=== PATIENT | female | born 1950 | race Caucasian/White ===

== ENCOUNTER 2017-10-06 05:35 | Day surgery (SDC) | payer MEDICARE, OTHER ==
[~2017-10-06] VITALS: Ht 165.1 cm; Wt 112.5 kg
[~2017-10-06 05:35] MED LIST: ACET500 PO; AMOCLA875 PO; ANAS1 PO; ASPI81CH PO; ASPI81EC PO; BENEFIBER1 EAC1 PO; CALCA400CH PO; CHOL10002 PO; CRANBERRY CONCENTRAT PO; CRUTCH4 USE; DOCCAL240 PO; FLUT.05NI; Flovent 44 mc10.6 GM INH; GAS X PO; Hair, Skin & N1 EACH PO; IBUP800 PO; METRIBP PO; MIRALAX17 GM PO; PRED20 PO; PROACE100 PO; PROBIOTIC; PROBIOTIC1 EAC1; PROBIOTIC1 EAC2 PO; RANI150 PO; Stool Softener100 MG PO; THERACRAN650 MG PO; TUMS200 MG PO; Tylenol325 MG PO; VITAMIN B12 PO; VITAMINS; [UNRECOGNIZED DRUG - REMARK]
== END 2017-10-06 08:38 | disposition home or self-care (01) ==
LOC: ORSCMMR 05:35
PROVIDERS: Surgery
PROC: 0DJD8ZZ Inspection of Lower Intestinal Tract, Via Natural or Artificial Opening Endoscopic (ICD-10-PCS; principal; 2017-10-06 07:30)
DX: Z12.11 Encounter for screening for malignant neoplasm of colon (principal); K57.30 Diverticulosis of large intestine without perforation or abscess without bleeding; Z87.19 Personal history of other diseases of the digestive system; E11.9 Type 2 diabetes mellitus without complications; E66.01 Morbid (severe) obesity due to excess calories; Z68.41 Body mass index [BMI] 40.0-44.9, adult; Z79.82 Long term (current) use of aspirin; Z79.899 Other long term (current) drug therapy
CPT/HCPCS: 82947; J2250; J7120

== ENCOUNTER 2020-12-03 12:41 | Emergency (ER) | payer MEDICARE, OTHER ==
[~2020-12-03] VITALS: Ht 170.2 cm; Wt 113.4 kg
[2020-12-03 13:17] LABS: BASOPHILS ABSOLUTE AUTO 0.03 K/mm3 (0.00-0.23); BASOPHILS PERCENT AUTO 0 % (0-2); EOSINOPHILS ABSOLUTE AUTO 0.14 K/mm3 (0.00-0.68); EOSINOPHILS PERCENT AUTO 2 % (0-6); Hematocrit 47.5 % (33.0-51.0); Hemoglobin 15.4 g/dL (11.5-16.0); IMMATURE GRAN ABSOLUTE AUTO 0.02 K/mm3 (0.00-0.10); IMMATURE GRAN PERCENT AUTO 0 % (0-1); LYMPHOCYTES ABSOLUTE AUTO 2.22 K/mm3 (0.84-5.20); LYMPHOCYTES PERCENT AUTO 31 % (21-46); MONOCYTES ABSOLUTE AUTO 0.63 K/mm3 (0.16-1.47); MONOCYTES PERCENT AUTO 9 % (4-13); Mean Corpuscular HGB 30.6 pg (26.0-34.0); Mean Corpuscular HGB Conc 32.4 g/dL (31.5-36.5); Mean Corpuscular Volume 94 fL (80-100); Mean Platelet Volume 11.5 fL (9.1-12.4); NEUTROPHILS ABSOLUTE AUTO 4.14 K/mm3 (1.96-9.15); NEUTROPHILS PERCENT AUTO 58 % (41-73); Platelet Count 221 K/mm3 (150-400); RDW Coefficient Variation 13.3 % (11.7-14.2); RDW Standard Deviation 45.7 fL (35.1-46.3); Red Blood Cell Count 5.04 M/mm3 (3.80-5.20); White Blood Cell Count 7.18 K/mm3 (4.00-11.30)
[2020-12-03 13:36] LABS: Alanine Aminotransfer (ALT/SGP 61 U/L (12-78); Albumin, Blood 3.5 g/dL (3.4-5.0); Albumin/Globulin Ratio 0.9 (0.8-1.8); Alk Phos 121 U/L (50-136); Anion Gap 5 mmol/L (6-16); Aspartate Aminotrans (AST/SGOT 33 U/L (12-37); Bilirubin, Total 0.7 mg/dL (0.1-1.0); Blood Urea Nitrogen 12 mg/dL (8-24); Bun/Creatinine Ratio 16.5 (12.0-20.0); CO2, Blood 27 mmol/L (21-32); Calcium, Blood 8.7 mg/dL (8.5-10.1); Chloride, Blood 111 mmol/L (98-108); Creatinine, Blood 0.73 mg/dL (0.40-1.00); Globulin, Blood 3.7 g/dL (2.2-4.0); Glomerular Filtration Rate >60 (60-); Glucose, Blood 146 mg/dL (70-99); Potassium, Blood 3.7 mmol/L (3.5-5.5); Sodium, Blood 143 mmol/L (136-145); Total Protein, Blood 7.2 g/dL (6.4-8.2); Troponin I <0.015 ng/mL (0.000-0.040)
== END 2020-12-03 16:52 | disposition home or self-care (01) ==
LOC: ER 12:41
PROVIDERS: Physician Assistant
DX: I47.1 Supraventricular tachycardia (principal); Z79.52 Long term (current) use of systemic steroids; Z79.899 Other long term (current) drug therapy; Z88.5 Allergy status to narcotic agent
CPT/HCPCS: 36415; 71046; 80053; 84443; 84484; 85025; 85379; 93005; 93010; 96374; 99285-25; J0153

== ENCOUNTER 2020-12-16 04:33 | Observation (INO) | payer MEDICARE, OTHER ==
[~2020-12-16] VITALS: Ht 165.1 cm; Wt 108.9 kg
[2020-12-16 05:13] LABS: BASOPHILS ABSOLUTE AUTO 0.04 K/mm3 (0.00-0.23); BASOPHILS PERCENT AUTO 1 % (0-2); EOSINOPHILS PERCENT AUTO 3 % (0-6); Hematocrit 45.7 % (33.0-51.0); Hemoglobin 14.5 g/dL (11.5-16.0); IMMATURE GRAN ABSOLUTE AUTO 0.02 K/mm3 (0.00-0.10); IMMATURE GRAN PERCENT AUTO 0 % (0-1); LYMPHOCYTES ABSOLUTE AUTO 2.06 K/mm3 (0.84-5.20); LYMPHOCYTES PERCENT AUTO 29 % (21-46); MONOCYTES ABSOLUTE AUTO 0.69 K/mm3 (0.16-1.47); MONOCYTES PERCENT AUTO 10 % (4-13); Mean Corpuscular HGB 29.4 pg (26.0-34.0); Mean Corpuscular HGB Conc 31.7 g/dL (31.5-36.5); Mean Corpuscular Volume 93 fL (80-100); Mean Platelet Volume 11.5 fL (9.1-12.4); NEUTROPHILS PERCENT AUTO 58 % (41-73); Platelet Count 192 K/mm3 (150-400); RDW Coefficient Variation 13.2 % (11.7-14.2); Red Blood Cell Count 4.93 M/mm3 (3.80-5.20); White Blood Cell Count 7.11 K/mm3 (4.00-11.30)
[2020-12-16 05:32] LABS: Alanine Aminotransfer (ALT/SGP 48 U/L (12-78); Albumin, Blood 3.5 g/dL (3.4-5.0); Alk Phos 110 U/L (50-136); Anion Gap 4 mmol/L (6-16); Aspartate Aminotrans (AST/SGOT 26 U/L (12-37); Bilirubin, Total 0.5 mg/dL (0.1-1.0); Blood Urea Nitrogen 14 mg/dL (8-24); Bun/Creatinine Ratio 18.9 (12.0-20.0); CO2, Blood 28 mmol/L (21-32); Calcium, Blood 8.7 mg/dL (8.5-10.1); Chloride, Blood 110 mmol/L (98-108); Creatinine, Blood 0.74 mg/dL (0.40-1.00); Globulin, Blood 3.5 g/dL (2.2-4.0); Glomerular Filtration Rate >60 (60-); Glucose, Blood 106 mg/dL (70-99); Potassium, Blood 3.6 mmol/L (3.5-5.5); Sodium, Blood 142 mmol/L (136-145); Troponin I <0.015 ng/mL (0.000-0.040)
[2020-12-16 07:50] LABS: Magnesium, Blood 2.4 mg/dL (1.6-2.4)
--- NOTE | 2020-12-16 10:39 | NUR ---
Echocardiogram completed.
--- NOTE | 2020-12-16 19:21 | NUR ---
SHIFT SUMMARY PT ADMITTED FOR CP AND DIZZINESS. A/O X4 AND A GOOD HISTORIAN. EXPERIENCES VERTIGO AT BASELINE DUE TO AN INNER EAR CONDITION. PART ONE OF STRESS TEST DONE TODAY AND PART TWO TO BE DONE TOMORROW IN THE AM. VSS. NORMAL SINUS ON TELE. REPORT GIVEN TO ONCOMING SAMEERA.
--- NOTE | 2020-12-17 03:41 | NUR ---
[address] VENDOR SUMMARY PT A/O X4. AMBULATED WITH SBA TO THE BATHROOM. PT DENIES CHEST PAIN, NAUSEA, SOB. PT STILL DOES HAVE SOME DIZZINIESS AT TIMES WHEN STANDING UP. VSS. TELE SR IN THE 70'S TO 80'S. SLEPT WELL TONIGHT. NO ACUTE CHANGES. NPO SINCE 0200 FOR STRESS TEST TODAY. CALL LIGHT WITHIN REACH.
[2020-12-17 05:29] LABS: Anion Gap 3 mmol/L (6-16); Blood Urea Nitrogen 13 mg/dL (8-24); Bun/Creatinine Ratio 18.7 (12.0-20.0); CO2, Blood 28 mmol/L (21-32); Calcium, Blood 8.3 mg/dL (8.5-10.1); Chloride, Blood 113 mmol/L (98-108); Glomerular Filtration Rate >60 (60-); Glucose, Blood 95 mg/dL (70-99); Potassium, Blood 3.9 mmol/L (3.5-5.5); Sodium, Blood 144 mmol/L (136-145)
== END 2020-12-17 18:11 | disposition left against medical advice (07) ==
LOC: ER 04:33 → MEDS 04:34
PROVIDERS: Emergency Medicine; Nurse Practitioner Acute Care; ADMIT Internal Medicine
DX: R07.9 Chest pain, unspecified (principal); R06.02 Shortness of breath; I47.1 Supraventricular tachycardia; R73.03 Prediabetes; C50.919 Malignant neoplasm of unspecified site of unspecified female breast; E66.01 Morbid (severe) obesity due to excess calories; Z79.82 Long term (current) use of aspirin; Z88.5 Allergy status to narcotic agent; Z68.39 Body mass index [BMI] 39.0-39.9, adult
CPT/HCPCS: 36415; 71046; 78452; 80048; 80053; 83735; 84484; 85025; 93005; 93010; 93017; 93306; 96372; 99285-25; A9270; A9500; G0378; J0280; J1650; J2785; J7030

== ENCOUNTER 2021-01-03 19:38 | Emergency (ER) | payer MEDICARE, OTHER ==
[~2021-01-03] VITALS: Ht 165.1 cm; Wt 108.9 kg
[2021-01-03 20:37] LABS: BASOPHILS ABSOLUTE AUTO 0.07 K/mm3 (0.00-0.23); BASOPHILS PERCENT AUTO 1 % (0-2); EOSINOPHILS ABSOLUTE AUTO 0.17 K/mm3 (0.00-0.68); EOSINOPHILS PERCENT AUTO 2 % (0-6); Hematocrit 47.5 % (33.0-51.0); Hemoglobin 15.3 g/dL (11.5-16.0); IMMATURE GRAN ABSOLUTE AUTO 0.03 K/mm3 (0.00-0.10); IMMATURE GRAN PERCENT AUTO 0 % (0-1); LYMPHOCYTES PERCENT AUTO 29 % (21-46); MONOCYTES ABSOLUTE AUTO 1.06 K/mm3 (0.16-1.47); MONOCYTES PERCENT AUTO 12 % (4-13); Mean Corpuscular HGB 30.1 pg (26.0-34.0); Mean Corpuscular HGB Conc 32.2 g/dL (31.5-36.5); Mean Corpuscular Volume 94 fL (80-100); Mean Platelet Volume 11.7 fL (9.1-12.4); NEUTROPHILS ABSOLUTE AUTO 5.16 K/mm3 (1.96-9.15); NEUTROPHILS PERCENT AUTO 56 % (41-73); Platelet Count 229 K/mm3 (150-400); RDW Coefficient Variation 13.2 % (11.7-14.2); Red Blood Cell Count 5.08 M/mm3 (3.80-5.20); White Blood Cell Count 9.19 K/mm3 (4.00-11.30)
[2021-01-03 20:47] LABS: Anion Gap 5 mmol/L (6-16); Blood Urea Nitrogen 16 mg/dL (8-24); CO2, Blood 26 mmol/L (21-32); Calcium, Blood 9.1 mg/dL (8.5-10.1); Chloride, Blood 113 mmol/L (98-108); Creatinine, Blood 0.89 mg/dL (0.40-1.00); Glomerular Filtration Rate >60 (60-); Glucose, Blood 116 mg/dL (70-99); Potassium, Blood 3.7 mmol/L (3.5-5.5); Sodium, Blood 144 mmol/L (136-145)
== END 2021-01-03 22:30 | disposition home or self-care (01) ==
LOC: ER 19:38
PROVIDERS: Emergency Medicine
DX: I47.1 Supraventricular tachycardia (principal); Z79.82 Long term (current) use of aspirin; Z79.899 Other long term (current) drug therapy
CPT/HCPCS: 36415; 80048; 85025; 93005; 93010; 96374; 99285-25; J0153; J7030

== ENCOUNTER → 2022-06-23 | Outpatient (CLI) | payer MEDICARE, OTHER | LOC: PLD 12:16 → LAB SHORT 12:16 | DX: D22.39 Melanocytic nevi of other parts of face (principal) | CPT/HCPCS: 88305 ==

== ENCOUNTER 2025-04-04 19:31 | Emergency (ER) | payer MEDICARE, OTHER ==
[~2025-04-04] VITALS: Ht 165.1 cm; Wt 106.6 kg
[2025-04-04 19:54] LABS: BASOPHILS ABSOLUTE AUTO 0.04 K/mm3 (0.00-0.23); BASOPHILS PERCENT AUTO 0 % (0-2); EOSINOPHILS ABSOLUTE AUTO 0.01 K/mm3 (0.00-0.68); EOSINOPHILS PERCENT AUTO 0 % (0-6); Hematocrit 45.2 % (33.0-51.0); Hemoglobin 14.7 g/dL (11.5-16.0); IMMATURE GRAN ABSOLUTE AUTO 0.04 K/mm3 (0.00-0.10); IMMATURE GRAN PERCENT AUTO 0 % (0-1); LYMPHOCYTES ABSOLUTE AUTO 1.22 K/mm3 (0.84-5.20); LYMPHOCYTES PERCENT AUTO 11 % (21-46); MONOCYTES ABSOLUTE AUTO 0.77 K/mm3 (0.16-1.47); MONOCYTES PERCENT AUTO 7 % (4-13); Mean Corpuscular HGB Conc 32.5 g/dL (31.5-36.5); Mean Corpuscular Volume 92 fL (80-100); NEUTROPHILS ABSOLUTE AUTO 9.16 K/mm3 (1.96-9.15); NEUTROPHILS PERCENT AUTO 81 % (41-73); NRBC ABSOLUTE 0.00 K/mm3 (0.00-0.02); NRBC Auto 0.0 /100 WBC (0.0-0.2); Platelet Count 226 K/mm3 (150-400); RDW Coefficient Variation 13.3 % (11.7-14.2); RDW Standard Deviation 45.5 fL (35.1-46.3)
[2025-04-04 20:20] LABS: Alanine Aminotransfer (ALT/SGP 38.0 U/L (12-78); Albumin, Blood 3.7 g/dL (3.4-5.0); Albumin/Globulin Ratio 1.0 (0.8-1.8); Anion Gap 8.0 mmol/L (3-11); Aspartate Aminotrans (AST/SGOT 24.0 U/L (12-37); Bilirubin, Total 0.5 mg/dL (0.1-1.0); Blood Urea Nitrogen 16.0 mg/dL (8-24); CO2, Blood 27.0 mmol/L (21-32); Calcium, Blood 9.2 mg/dL (8.5-10.1); Chloride, Blood 111.0 mmol/L (98-108); Creatinine, Blood 1.25 mg/dL (0.40-1.00); Globulin, Blood 3.6 g/dL (2.2-4.0); Glucose, Blood 127.0 mg/dL (70-99); Potassium, Blood 3.8 mmol/L (3.5-5.5); Sodium, Blood 142.0 mmol/L (136-145); Total Protein, Blood 7.3 g/dL (6.4-8.2)
[2025-04-04] MEDS ORDERED: NS 1,000 ML IV SCH (20:55)
[2025-04-04] MEDS ORDERED: MONT10T PO (21:52)
[2025-04-04 23:30] VITALS: BP 145/85
[2025-04-04 23:50] LABS: Source, Urine Clean Catch
[2025-04-05 00:07] LABS: Bilirubin, Urine Neg (Neg); Color, Urine Yellow (P-Yellow); Glucose Qualitative, Urine Neg (Neg); Ketones, Urine 1+ (Neg); Leukocyte Esterase, Urine 1+ (Neg); Protein, Urine 3+ (Neg); Specific Gravity, Urine 1.030 (1.003-1.022); Urobilinogen, Urine NORM (Normal)
[2025-04-05 00:14] LABS: Red Blood Cells, Urine 0-2 /hpf (0-2)
== END 2025-04-05 00:42 | disposition home or self-care (01) ==
LOC: ER 19:31
PROVIDERS: Emergency Medicine; Student in an Organized Health Care Education/Training Program
DX: R55 Syncope and collapse (principal); R11.2 Nausea with vomiting, unspecified; Z79.82 Long term (current) use of aspirin; Z88.5 Allergy status to narcotic agent
CPT/HCPCS: 80053; 81001; 84484; 85025; 87077; 87086; 87186; 93005; 93010; 96360; 96361; 99284-25; J7030

== ENCOUNTER 2025-04-23 15:34 | Emergency (ER) | payer MEDICARE, OTHER ==
[~2025-04-23] VITALS: Ht 165.1 cm; Wt 106.6 kg
[~2025-04-23 15:34] MED LIST changes: +MONT10T PO
[2025-04-23 16:02] LABS: BASOPHILS ABSOLUTE AUTO 0.03 K/mm3 (0.00-0.23); BASOPHILS PERCENT AUTO 0 % (0-2); EOSINOPHILS ABSOLUTE AUTO 0.13 K/mm3 (0.00-0.68); EOSINOPHILS PERCENT AUTO 2 % (0-6); Hematocrit 45.4 % (33.0-51.0); Hemoglobin 14.6 g/dL (11.5-16.0); IMMATURE GRAN ABSOLUTE AUTO 0.01 K/mm3 (0.00-0.10); IMMATURE GRAN PERCENT AUTO 0 % (0-1); LYMPHOCYTES ABSOLUTE AUTO 2.07 K/mm3 (0.84-5.20); LYMPHOCYTES PERCENT AUTO 30 % (21-46); MONOCYTES ABSOLUTE AUTO 0.59 K/mm3 (0.16-1.47); MONOCYTES PERCENT AUTO 9 % (4-13); Mean Corpuscular HGB Conc 32.2 g/dL (31.5-36.5); Mean Corpuscular Volume 94 fL (80-100); NEUTROPHILS ABSOLUTE AUTO 4.09 K/mm3 (1.96-9.15); NEUTROPHILS PERCENT AUTO 59 % (41-73); NRBC ABSOLUTE 0.00 K/mm3 (0.00-0.02); NRBC Auto 0.0 /100 WBC (0.0-0.2); Platelet Count 212 K/mm3 (150-400); RDW Coefficient Variation 13.7 % (11.7-14.2); RDW Standard Deviation 47.6 fL (35.1-46.3)
[2025-04-23 16:27] LABS: Alanine Aminotransfer (ALT/SGP 40.0 U/L (12-78); Albumin, Blood 3.5 g/dL (3.4-5.0); Albumin/Globulin Ratio 1.0 (0.8-1.8); Anion Gap 8.0 mmol/L (3-11); Aspartate Aminotrans (AST/SGOT 22.0 U/L (12-37); Bilirubin, Total 0.3 mg/dL (0.1-1.0); Blood Urea Nitrogen 24.0 mg/dL (8-24); CO2, Blood 27.0 mmol/L (21-32); Calcium, Blood 8.6 mg/dL (8.5-10.1); Chloride, Blood 112.0 mmol/L (98-108); Creatinine, Blood 0.76 mg/dL (0.40-1.00); Globulin, Blood 3.6 g/dL (2.2-4.0); Glucose, Blood 154.0 mg/dL (70-99); Potassium, Blood 4.0 mmol/L (3.5-5.5); Sodium, Blood 143.0 mmol/L (136-145); Total Protein, Blood 7.1 g/dL (6.4-8.2)
[2025-04-23 21:15] VITALS: BP 127/82
== END 2025-04-23 21:28 | disposition home or self-care (01) ==
LOC: ER 15:34
PROVIDERS: Emergency Medicine
DX: R00.2 Palpitations (principal); Z88.5 Allergy status to narcotic agent; Z79.82 Long term (current) use of aspirin; Z79.899 Other long term (current) drug therapy
CPT/HCPCS: 71046; 80053; 84484; 85025; 93005; 93010; 99285-25